=== PATIENT | female | born 1975 | race Caucasian/White ===

== ENCOUNTER 2023-10-27 09:24 | Emergency (ER) | payer OTHER, SELFPAY ==
[2023-10-27 09:33] VITALS: BP 122/78; PULSE 90; RESP 15; TEMP 37.2; O2SAT 100
--- NOTE | 2023-10-27 09:53 | DI.CT.S_ITS ---
PROCEDURE: CT HEAD/BRAIN WO CON INDICATIONS: fall, bloody drainage from left ear TECHNIQUE: Noncontrast 4.5 mm thick angled axial sections acquired from the foramen magnum to the vertex, with coronal and sagittal reformats. For radiation dose reduction, the following was used: automated exposure control, adjustment of mA and/or kV according to patient size. COMPARISON: None. FINDINGS: Image quality: Diagnostic. CSF spaces: Basal cisterns are patent. No extra-axial fluid collections. Ventricles are normal in size and shape. Brain: No midline shift. No intracranial masses or hemorrhage. Quinones-white matter interface is normal. Skull and face: Calvarium and visualized facial bones are intact, without suspicious lesions. Sinuses: Partial opacification of the left mastoid air cells. Paranasal sinuses are clear. IMPRESSION: No acute intracranial pathology. Partial opacification of the left mastoid air cells. Dictated by: Teo Murray M.D. on 10/27/2023 at 10:23 Approved by: Teo Murray M.D. on 10/27/2023 at 10:25
--- NOTE | 2023-10-27 09:57 | DI.CT.S_ITS ---
PROCEDURE: CT FACIAL BONES WO CON INDICATIONS: fall , bloody drainage from left ear TECHNIQUE: Noncontrast 2.5 mm thick axial images acquired from the mandible through the frontal sinuses, with coronal and sagittal reformatting. For radiation dose reduction, the following was used: automated exposure control, adjustment of mA and/or kV according to patient size. COMPARISON: None. FINDINGS: Image quality: Excellent. Bones and teeth: Orbital whitley are intact. Sinus whitley show no fracture or deformity. Nasal bones and septum are intact. Visualized portions of the mandible demonstrate no fractures or subluxation. Zygomatic arches are intact. Pterygoid plates are intact. Visualized portions of the skull base and auditory canals are intact. Sinuses: Mild mucosal thickening of left maxillary sinus with hyperostosis of the wall, consistent with chronic sinusitis. Left maxillary sinus mucous retention cyst. Mild mucosal thickening of the ethmoid air cells. Partial opacification of the left mastoid air cells. Small fluid within the middle ear. Fluid filling the external auditory canal. Soft tissues: No edema, masses, or fluid collections. No enlarged lymph nodes. No soft tissue lacerations or debris. Vascular: Visualized vascular structures appear normal in the absence of contrast. Bony vascular foramina and canals are intact. IMPRESSION: Partial opacification of left mastoid air cells. Small fluid within the left middle ear and opacification of the left external auditory canal. No definite fracture is identified. Dictated by: Teo Murray M.D. on 10/27/2023 at 10:25 Approved by: Teo Murray M.D. on 10/27/2023 at 10:28
--- NOTE | 2023-10-27 11:17 | ED.EAR ---
HPI - Ear Problem General Chief complaint: Ear Stated complaint: Blood & Discharge from L Ear Time Seen by Provider: 10/27/23 11:17 Source: patient Mode of arrival: Family Vehicle Related Data Home Medications Medication Instructions Recorded Confirmed sertraline 25 mg tablet 25 mg PO DAILY 10/27/23 10/27/23 Allergies Allergy/AdvReac Type Severity Reaction Status Date / Time No Known Drug Allergies Allergy Verified 10/27/23 08:57 Patient History Social History Smoking Status: Never smoker Smoking Status: Never smoker alcohol intake frequency: 0-2 drinks per day Substance Use Type: does not use Exam Narrative Exam Narrative: GENERAL: Well-developed patient, in mild distress. HEAD: Atraumatic. Normocephalic. EYES: Pupils equal round and reactive. Extraocular motions intact. No scleral icterus. No injection or drainage. ENT: Nose without bleeding, purulent drainage. Throat without erythema, tonsillar hypertrophy or exudate. Airway patent. NECK: Trachea midline. Non tender CARDIOVASCULAR: Regular rate and rhythm without murmurs, gallops, or rubs. RESPIRATORY: Clear to auscultation. Breath sounds equal bilaterally. No wheezes, rales, or rhonchi. GASTROINTESTINAL: Abdomen soft, non-tender, nondistended. EXTREMITIES: No edema or joint tenderness. BACK: Nontender without deformity or crepitance. No flank tenderness. NEURO: AOx3. SKIN: No rash or erythema of visible areas Initial Vital Signs Initial Vital Signs: Vital Signs Temperature 98.9 F 10/27/23 09:33 Pulse Rate 90 10/27/23 09:33 Respiratory Rate 15 10/27/23 09:33 Blood Pressure 122/78 10/27/23 09:33 Pulse Oximetry 100 10/27/23 09:33 Oxygen Delivery Method Room Air 10/27/23 09:33 Course Orders Ordered: ED Orders 10/27/23 09:53 CT head/brain wo con Stat 10/27/23 09:57 CT facial bones wo con Stat Discontinued Medications Ketorolac Tromethamine (Ketorolac 30 Mg/Ml Vial) 30 mg IM NOW ONE Stop: 10/27/23 11:14 Vital Signs Vital signs: Vital Signs - 8 hr 10/27/23 09:33 Temperature 98.9 F Pulse Rate 90 Respiratory Rate 15 Blood Pressure 122/78 Pulse Oximetry 100 Oxygen Delivery Method Room Air Discharge Plan Departure Prescriptions: No Action sertraline 25 mg tablet 25 mg PO DAILY Referrals: Miscellaneous,Doctor, MD [Primary Care Provider] -
[2023-10-27 11:19] VITALS: O2SAT 96
[2023-10-27 11:20] VITALS: BP 120/64; PULSE 93; O2SAT 99
[2023-10-27 11:30] VITALS: BP 108/61; PULSE 92; O2SAT 100
[2023-10-27] MEDS: SODIUM CHLORIDE 0.9% 1,000 ML 1000 ML IV (11:56)
[2023-10-27] MEDS: KETOROLAC 30 MG/ML VIAL 15 MG IV (11:57)
[2023-10-27 12:00] VITALS: BP 103/59; PULSE 92; O2SAT 100
--- NOTE | 2023-10-27 12:05 | ED_ITS ---
HPI - Ear Problem General Chief complaint: Ear Stated complaint: Blood & Discharge from L Ear Time Seen by Provider: 10/27/23 11:17 Source: patient Mode of arrival: Family Vehicle Limitations: no limitations History of Present Illness HPI Narrative: This is a 48-year-old female on sertraline as her only medication. Patient presents with complaint of left ear pain starting Wednesday, patient notes pain was increasing she then started having serosanguineous drainage from the ear possibly a little bit of purulent drainage had some improvement of pain and then it started to increase again. She feels like she has had some swelling of the ear and face and neck, she has discomfort in that area. She denies any fevers, chills or rigors. She has not had any trouble with swallowing, no changes to speech. No decreased hearing. She states moving her head does make that area hurt more. She does not have any difficulty with movement of her neck itself. She describes a decreased appetite but denies nausea or vomiting. No other GI symptoms reported. Patient has not appreciate any rash or redness. She states sertraline as her only daily medication, she has had prior surgery on her finger. No known drug allergies. No regular tobacco, no recreational drugs, no IV drugs. No regular alcohol. Patient does note that she had a while hike several days ago. She states she did not hit her head, she does not recall any trauma or injury to the neck ear or face. She states she does have some scratches and abrasions on her torso. Related Data Home Medications Medication Instructions Recorded Confirmed sertraline 25 mg tablet 25 mg PO DAILY 10/27/23 10/27/23 Previous Rx's Medication Instructions Recorded amoxicillin 875 mg-potassium 1 tab PO BID #20 tabs 10/27/23 clavulanate 125 mg tablet ciprofloxacin 0.3 %-dexamethasone 4 drp EAR-LEFT BID 10 days #7.5 mL 10/27/23 0.1 % ear drops,suspension meloxicam 7.5 mg tablet 7.5 mg PO BID PRN pain #10 tabs 10/27/23 Allergies Allergy/AdvReac Type Severity Reaction Status Date / Time No Known Drug Allergies Allergy Verified 10/27/23 08:57 Review of Systems Review of Systems ROS Unobtainable: All systems reviewed & are unremarkable except as noted in HPI and below Patient History Social History Smoking Status: Never smoker Smoking Status: Never smoker alcohol intake frequency: 0-2 drinks per day Substance Use Type: does not use Exam Narrative Exam Narrative: GEN: well nourished, well appearing female, alert and oriented x [default value], patient appears to be in mild distress. HEENT: Atraumatic, pupils are equal round reactive to light, extraocular movements are intact, nares are clear, right TM is intact with no fluid or erythema, difficult to visualize left TM there is some serosanguineous drainage in the canal of the canal itself that is visualized does not have any swelling, patient is nontender with movement of the pinna or when I place the otoscope within the canal. She does not have any obvious swelling of the ear, face or neck. Some mild submandibular lymphadenopathy. There is no conjunctival pallor. Throat is clear without any exudates, erythema, tonsillar enlargement or uvular deviation, normal speech. No difficulty with secretions or swallowing. Nontender over the mastoid. HEART: Regular rate and rhythm without murmur, clicks, rubs. No carotid bruits, pulses are equal in upper and lower extremities LUNGS:Lungs clear to auscultation, no wheezes, rales, crackles, chest moves symmetrically ABD:bowel sounds normal, soft, non-tender, no guarding, rebound, rigidity, no masses noted, no hepatosplenomegaly :No CVA tenderness, [male/female exam] MSCL: Non-tender, no muscle atrophy, muscles strength 5/5 upper and lower extremities, full range of motion, normal gait NEURO:CN 2-12 intact, sensation normal, reflexes 2/4 upper and lower extremities. finger nose finger test normal, heel cordova test normal, romberg normal Initial Vital Signs Initial Vital Signs: Vital Signs Temperature 98.9 F 10/27/23 09:33 Pulse Rate 90 10/27/23 09:33 Respiratory Rate 15 10/27/23 09:33 Blood Pressure 122/78 10/27/23 09:33 Pulse Oximetry 100 10/27/23 09:33 Oxygen Delivery Method Room Air 10/27/23 09:33 Course Orders Ordered: ED Orders 10/27/23 09:53 CT head/brain wo con Stat 10/27/23 09:57 CT facial bones wo con Stat Discontinued Medications Amoxicillin/Clavulanate Potassium (Amoxicillin/Clav 875/125 Mg) 1 tab PO NOW ONE Stop: 10/27/23 12:20 Last Admin: 10/27/23 12:27 Dose: 1 tab Documented By: MOSHE Sodium Chloride (Normal Saline 0.9%) 1,000 mls @ 1,000 mls/hr IV BOLUS ONE Stop: 10/27/23 12:53 Last Infusion: 10/27/23 12:44 Dose: Infused Documented By: Admin: 10/27/23 11:56 Dose: 1,000 mls/hr Documented By: MOSHE Ketorolac Tromethamine (Ketorolac 30 Mg/Ml Vial) 30 mg IM NOW ONE Stop: 10/27/23 11:14 Last Admin: 10/27/23 11:56 Dose: Not Given Documented By: MOSHE Ketorolac Tromethamine (Ketorolac 30 Mg/Ml Vial) 15 mg IV NOW ONE Stop: 10/27/23 11:56 Last Admin: 10/27/23 11:57 Dose: 15 mg Documented By: MOSHE Vital Signs Vital signs: Vital Signs - 8 hr 10/27/23 09:33 10/27/23 11:19 10/27/23 11:20 Temperature 98.9 F Pulse Rate 90 Respiratory Rate 15 Blood Pressure 122/78 120/64 Pulse Oximetry 100 96 Oxygen Delivery Method Room Air 10/27/23 11:20 10/27/23 11:30 10/27/23 11:30 Temperature Pulse Rate 93 H 92 H Respiratory Rate Blood Pressure 108/61 Pulse Oximetry 99 100 Oxygen Delivery Method 10/27/23 12:00 10/27/23 12:00 10/27/23 12:44 Temperature Pulse Rate 92 H 86 Respiratory Rate 16 Blood Pressure 103/59 L 116/62 Pulse Oximetry 100 100 Oxygen Delivery Method Room Air Medical Decision Making Imaging Data CT scan - head: Radiologist's Impression: Close Face CT (Signed) Teo Murray - 10/27/[address] (Signed) Teo Murray - 10/27/23 Launch?[address] [address] [address] Scan Report Signed Patient: Gosia Stockton MR#: [id number] : 1975 Acct:[id number] Age/Sex: 48 / F Date of Service: 10/27/23 Loc: ED Accession Number: [id number] Procedure: CT head/brain wo con Ordering Provider: Peter Blancas MD PROCEDURE: CT HEAD/BRAIN WO CON INDICATIONS: fall, bloody drainage from left ear TECHNIQUE: Noncontrast 4.5 mm thick angled axial sections acquired from the foramen magnum to the vertex, with coronal and sagittal reformats. For radiation dose reduction, the following was used: automated exposure control, adjustment of mA and/or kV according to patient size. COMPARISON: None. FINDINGS: Image quality: Diagnostic. CSF spaces: Basal cisterns are patent. No extra-axial fluid collections. Ventricles are normal in size and shape. Brain: No midline shift. No intracranial masses or hemorrhage. Quinones-white matter interface is normal. Skull and face: Calvarium and visualized facial bones are intact, without suspicious lesions. Sinuses: Partial opacification of the left mastoid air cells. Paranasal sinuses are clear. IMPRESSION: No acute intracranial pathology. Partial opacification of the left mastoid air cells. Dictated by: Teo Murray M.D. on 10/27/2023 at 10:23 Approved by: Teo Murray M.D. on 10/27/2023 at 10:[address]: Radiologist's Impression: [place] [address] CT Scan Report Signed Patient: Gosia Stockton MR#: [id number] : 1975 Acct:[id number] Age/Sex: 48 / F Date of Service: 10/27/23 Loc: ED Accession Number: [id number] Procedure: CT facial bones wo con Ordering Provider: Peter Blancas MD PROCEDURE: CT FACIAL BONES WO CON INDICATIONS: fall , bloody drainage from left ear TECHNIQUE: Noncontrast 2.5 mm thick axial images acquired from the mandible through the frontal sinuses, with coronal and sagittal reformatting. For radiation dose reduction, the following was used: automated exposure control, adjustment of mA and/or kV according to patient size. COMPARISON: None. FINDINGS: Image quality: Excellent. Bones and teeth: Orbital whitley are intact. Sinus whitley show no fracture or deformity. Nasal bones and septum are intact. Visualized portions of the mandible demonstrate no fractures or subluxation. Zygomatic arches are intact. Pterygoid plates are intact. Visualized portions of the skull base and auditory canals are intact. Sinuses: Mild mucosal thickening of left maxillary sinus with hyperostosis of the wall, consistent with chronic sinusitis. Left maxillary sinus mucous retention cyst. Mild mucosal thickening of the ethmoid air cells. Partial opacification of the left mastoid air cells. Small fluid within the middle ear. Fluid filling the external auditory canal. Soft tissues: No edema, masses, or fluid collections. No enlarged lymph nodes. No soft tissue lacerations or debris. Vascular: Visualized vascular structures appear normal in the absence of contrast. Bony vascular foramina and canals are intact. IMPRESSION: Partial opacification of left mastoid air cells. Small fluid within the left middle ear and opacification of the left external auditory canal. No definite fracture is identified. Dictated by: Teo Murray M.D. on 10/27/2023 at 10:25 Approved by: Teo Murray M.D. on 10/27/2023 at 10:28 [facility] Narrative Medical decision making narrative: 48-year-old female presents with complaint of left ear discomfort, drainage. Patient has what appears to be more serosanguineous them purulent drainage from the left ear. Unable to fully visualize the TM but suspect she has had rupture. The canal itself is nontender she has no external swelling or other skin changes. Patient did have a fall but denies striking her head, denies any trauma or injury to that area at that time. Patient appears to have an otitis media with likely ruptured TM. Patient was placed on oral antibiotics as well as drops for her ear. Patient had initially been triaged and physician present at that time had ordered CT head and facial bones based on reported history of hitting her head but patient states she did not. Imaging does show no basilar skull fracture, partial opacification of left mastoid air cells, facial bone CT shows mild mucosal thickening left maxillary sinus and changes consistent with chronic sinusitis, left maxillary sinus mucosal retention cyst. Thickening of the ethmoid air cells partial opacities in the left mastoid air cells and small fluid with an ear filling the external auditory canal. Patient is nontender over the sinuses or the mastoid. Discharge Plan Departure Patient Disposition: Home Clinical Impression: Otitis media with spontaneous rupture of eardrum, Sinusitis Instructions: Ruptured Eardrum Activity Restrictions/Additional Instructions: Follow up with ENT for recheck as I suspect you ruptured your ear drum, call to set up an appointment. Contact information is included below. You can use a cotton ball in the outer portion of your ear to get any drainage, do not use any Q-tips. Do not submerge your head or ear underneath the water, you do not want to go down into the canal. You appear to have an infection of your inner ear that caused your tympanic membrane rupture, on your imaging does note that there are some chronic sinusitis changes. Can take meloxicam 1 tablet every 12 hours as needed. Do not take this medication with ibuprofen, other NSAIDs to leave or naproxen. You can take Tylenol up to a 1000 mg every 6 hours as needed with this medication. Take antibiotics until completed, take 1 tablet every 12 hours times 10 days. You can use Cipro ear drops, 4 drops to the left ear twice daily times 10 days Prescription sent to [facility] in [place] Please return for fevers, increasing pain, new or increasing swelling, redness or skin changes, new changes to voice or difficulty with swallowing, any nausea or vomiting, new or worsening headaches, neck pain or any other new or concerning changes Prescriptions: New amoxicillin-pot clavulanate 875-125 mg tablet 1 tab PO BID Qty: 20 0RF ciprofloxacin-dexamethasone 0.3-0.1 % drops,suspension 4 drp EAR-LEFT BID 10 Days Qty: 7.5 0RF meloxicam 7.5 mg tablet 7.5 mg PO BID PRN (Reason: pain) Qty: 10 0RF No Action sertraline 25 mg tablet 25 mg PO DAILY Referrals: Raheem Johnson MD [Physician] - Miscellaneous,DoctorMD [Primary Care Provider] - Stand Alone Forms: Patient Portal/API, Work Release Note
[2023-10-27] MEDS: AMOXICILLIN/CLAV 875/125 MG 1 TAB PO (12:27)
[2023-10-27 12:44] VITALS: BP 116/62; PULSE 86; RESP 16; O2SAT 100
== END 2023-10-27 12:45 | disposition home or self-care (01) ==
PROVIDERS: Emergency Provider Emergency Medicine
DX: H66.92 Otitis media, unspecified, left ear (principal); H72.92 Unspecified perforation of tympanic membrane, left ear; J32.9 Chronic sinusitis, unspecified
CPT/HCPCS: 36415; 70450; 70486; 96361; 96374; 99284; J1885

== ENCOUNTER 2023-10-29 16:42 | Emergency (ER) | payer OTHER, SELFPAY ==
[2023-10-29 17:05] VITALS: BP 117/83; PULSE 75; RESP 16; TEMP 36.8; O2SAT 99; BMI 22.8
--- NOTE | 2023-10-29 17:40 | ED.RECABL ---
HPI - Recheck/Abnormal Lab/Rx <Tika Nuno PA-C - Last Filed: 11/01/23 14:42> General Chief Complaint: Recheck/Abnormal Lab/Rx Stated Complaint: HEAD pain/meds not working Time Seen by Provider: 10/29/23 17:39 Source: patient Mode of arrival: Ambulatory History of Present Illness HPI narrative: This is a 48-year-old woman recently seen in the ER for otitis media with ruptured eardrum who is on Augmentin and ciprofloxacin dexamethasone drops for ear discomfort who presents with concern for an episode of dizziness immediately after using the ear drops. Patient states that she had very uncomfortable episode of dizziness yesterday with the associated nausea when she attempted to use the ear drops into her ear, she has not used them since because of this. She says after using the drop she did have quite a bit of drainage from her ear of yellowish white material. She states that her other symptoms have improved somewhat although she has not completely resolved her symptoms. She is here today with concern for wanting something to help with dizziness and questioning whether she should continue to take the topical ear drops. She has no other new complaints or concerns. Related Data Home Medications Medication Instructions Recorded Confirmed sertraline 25 mg tablet 25 mg PO DAILY 10/27/23 10/27/23 Previous Rx's Medication Instructions Recorded amoxicillin 875 mg-potassium 1 tab PO BID #20 tabs 10/27/23 clavulanate 125 mg tablet ciprofloxacin 0.3 %-dexamethasone 4 drp EAR-LEFT BID 10 days #7.5 mL 10/27/23 0.1 % ear drops,suspension meloxicam 7.5 mg tablet 7.5 mg PO BID PRN pain #10 tabs 10/27/23 meclizine 25 mg tablet 25 mg PO QID 10 days #40 tabs 10/29/23 Allergies Allergy/AdvReac Type Severity Reaction Status Date / Time No Known Drug Allergies Allergy Verified 11/03/23 08:16 Review of Systems <Tika Nuno PA-C - Last Filed: 11/01/23 14:42> Review of Systems Narrative: See HPI Patient History <Tika Nuno PA-C - Last Filed: 11/01/23 14:42> Social History Smoking Status: Never smoker Smoking Status: Never smoker alcohol intake frequency: 0-2 drinks per day Substance Use Type: does not use Exam <Tika Nuno PA-C - Last Filed: 11/01/23 14:42> Narrative Exam Narrative: GENERAL: [48] year old patient appears stated age. Well-developed patient, in mild distress. HEAD: Atraumatic. Normocephalic. EYES: Pupils equal round and reactive. Extraocular motions intact. No scleral icterus. No injection or drainage. ENT: Nose without bleeding, purulent drainage. Throat without erythema, tonsillar hypertrophy or exudate. The left ear canal is slightly inflamed/swollen, the TM does appear to be ruptured, there is no significant erythema of the surrounding area, there is no tenderness with manipulation of the pinna or tragus, there is no swelling erythema or heat of the mastoid bone. There is a small amount of yellowish-white drainage dried in the ear canal on the left. Airway patent. NECK: Trachea midline. Non tender CARDIOVASCULAR: Regular rate and rhythm without murmurs, gallops, or rubs. RESPIRATORY: Clear to auscultation. Breath sounds equal bilaterally. No wheezes, rales, or rhonchi. EXTREMITIES: No edema or joint tenderness. NEURO: AOx3. SKIN: No rash or erythema of visible areas Initial Vital Signs Initial Vital Signs: Vital Signs Temperature 98.3 F 10/29/23 17:05 Pulse Rate 75 10/29/23 17:05 Respiratory Rate 16 10/29/23 17:05 Blood Pressure 117/83 10/29/23 17:05 Pulse Oximetry 99 10/29/23 17:05 Oxygen Delivery Method Room Air 10/29/23 17:05 <Leah Patterson MD - Last Filed: 11/05/23 08:27> Initial Vital Signs Initial Vital Signs: Vital Signs Temperature 98.3 F 10/29/23 17:05 Pulse Rate 75 10/29/23 17:05 Respiratory Rate 16 10/29/23 17:05 Blood Pressure 117/83 10/29/23 17:05 Pulse Oximetry 99 10/29/23 17:05 Oxygen Delivery Method Room Air 10/29/23 17:05 Course <Tika Nuno PA-C - Last Filed: 11/01/23 14:42> Vital Signs Vital signs: Vital Signs - 8 hr 06/07/24 17:05 Temperature 98.3 F Pulse Rate 75 Respiratory Rate 16 Blood Pressure 117/83 Pulse Oximetry 99 Oxygen Delivery Method Room Air <Leah Patterson MD - Last Filed: 11/05/23 08:27> Vital Signs Vital signs: Vital Signs - 8 hr 10/29/23 17:05 Temperature 98.3 F Pulse Rate 75 Respiratory Rate 16 Blood Pressure 117/83 Pulse Oximetry 99 Oxygen Delivery Method Room Air MDM - Recheck/Abnormal Lab/Rx <Tika Nuno PA-C - Last Filed: 11/01/23 14:42> Differential Diagnosis Differential diagnosis: Likely encounter for wound recheck and other (Medical question, medication side effect, vertigo) Medical Records Attestation: I reviewed the patient's medical records. Medical records narrative: Due to scheduled electronic system downtime unable to review patient's EMR MDM Narrative Medical decision making narrative: This is a well-appearing 48-year-old woman presenting with concern for episode of dizziness with nausea after using her topical ear drops in her left ear last night after diagnosis of otitis media with rupture. She has been taking her oral antibiotics and her symptoms have generally improved. We discussed options today and prescription for meclizine as well as Zofran prescribed. Given that the patient's symptoms occurred immediately after using the ear drops I think that this is the likely etiology of them, I have less suspicion for a other acute process. Exam is consistent with a recently ruptured eardrum possibly with otitis externa, there is no evidence of mastoiditis. Patient is advised regarding return precautions, follow-up plan discussed, all questions answered. Discharge Plan Departure Patient Disposition: Home Clinical Impression: Otitis media with spontaneous rupture of eardrum, Vertigo Activity Restrictions/Additional Instructions: *You have been diagnosed with [otitis media otitis externa, dizziness] *What to do: *Please continue to take your regular medications as directed. [2 ] New medication prescriptions sent to your pharmacy: [Ondansetron and meclizine] [ ] New medication written as a paper prescription [ ] No new medications given *Please follow up with your primary care provider in 2-3 days, call for an appointment. Let them know you were seen in the Emergency Department and that we ask that you be seen in follow up. We will electronically transmit a record of today's note if your PCP is in our system. You came in today with concern for some dizziness and nausea with using the ear drops you were prescribed recently for your ear infections. I recommend you try putting the drops in without lying completely on your side, it is okay to put them in sitting upright or only leaning slightly to the side and then kind of move her head position to try to help the drops move around inside the ear canal. Also try taking the meclizine medication 30-45 minutes prior to using the ear drops and possibly also taking these nausea medication also about 15-20 minutes before using the ear drops and see if this helps. If you have new or worsening symptoms or feel you are not improving please make sure you seek immediate re-evaluation. I hope you can get into see ENT soon but please come back to the emergency department if things are not improving or worsening. *If you do not have a primary care provider please contact the [facility] Resource line at [phone]. They will ask some questions about your medical history and help get you set up with a doctor in the community. *Return to Emergency Department if you should have any new, worsening or concerning symptoms, such as [fever greater than 101 F, shaking chills, worsening pain, persistent vomiting or other bothersome symptoms] Prescriptions: New meclizine 25 mg tablet 25 mg PO QID 10 Days Qty: 40 0RF No Action sertraline 25 mg tablet 25 mg PO DAILY amoxicillin-pot clavulanate 875-125 mg tablet 1 tab PO BID Qty: 20 0RF ciprofloxacin-dexamethasone 0.3-0.1 % drops,suspension 4 drp EAR-LEFT BID 10 Days Qty: 7.5 0RF meloxicam 7.5 mg tablet 7.5 mg PO BID PRN (Reason: pain) Qty: 10 0RF Referrals: Miscellaneous,Doctor, [Primary Care Provider] - Stand Alone Forms: Patient Portal/API ED Sign-out <Leah Patterson MD - Last Filed: 11/05/23 08:27> Cosign ED Attending Cosjefferyature Attestation: I did not see this patient. I was available all times for consultation.
[2023-10-29 19:57] VITALS: BP 110/72; PULSE 72; RESP 16; O2SAT 100
== END 2023-10-29 19:58 | disposition home or self-care (01) ==
PROVIDERS: Emergency Provider Student in an Organized Health Care Education/Training Program
DX: H66.92 Otitis media, unspecified, left ear (principal); R42 Dizziness and giddiness; H72.92 Unspecified perforation of tympanic membrane, left ear
CPT/HCPCS: 99281; 99283

== ENCOUNTER 2023-11-03 08:03 | Emergency (ER) | payer OTHER, SELFPAY ==
[2023-11-03 08:13] VITALS: BP 118/72; PULSE 66; RESP 16; TEMP 37; O2SAT 98; BMI 22.1
--- NOTE | 2023-11-03 08:18 | ED_ITS ---
HPI - Ear Problem General Chief complaint: Ear Stated complaint: L ear pain/drainage t-7 Time Seen by Provider: 11/03/23 08:18 Source: patient Mode of arrival: Ambulatory History of Present Illness HPI Narrative: Patient is a 48-year-old female who presents today with ongoing left ear drainage. She initially presented on October 26 with significant drainage. Found to have a ruptured tympanic membrane head CT was ordered there are reports of falling and hitting her head a few days prior. She was placed on Augmentin and Ciprodex drops. She has taken Augmentin now for 7 days. She had a repeat visit on October 28 for an episode of dizziness when she attempted to put ear drops in. She has been taking Tylenol 1000 mg every 6 hours combined with Motrin 400 mg every 6 hours. She continued to have significant drainage from the left ear. She has tenderness post or regularly. No fevers chills.. She tried to get into ENT but they are unavailable until January. Related Data Home Medications Medication Instructions Recorded Confirmed sertraline 25 mg tablet 25 mg PO DAILY 10/27/23 10/27/23 Previous Rx's Medication Instructions Recorded amoxicillin 875 mg-potassium 1 tab PO BID #20 tabs 10/27/23 clavulanate 125 mg tablet ciprofloxacin 0.3 %-dexamethasone 4 drp EAR-LEFT BID 10 days #7.5 mL 10/27/23 0.1 % ear drops,suspension meloxicam 7.5 mg tablet 7.5 mg PO BID PRN pain #10 tabs 10/27/23 meclizine 25 mg tablet 25 mg PO QID 10 days #40 tabs 10/29/23 ondansetron 4 mg disintegrating 4 mg PO Q8H PRN nausea and 10/29/23 tablet vomiting 7 days #21 tabs Allergies Allergy/AdvReac Type Severity Reaction Status Date / Time No Known Drug Allergies Allergy Verified 11/03/23 08:16 Patient History Social History Smoking Status: Never smoker Smoking Status: Never smoker alcohol intake frequency: 0-2 drinks per day Substance Use Type: does not use Exam Initial Vital Signs Initial Vital Signs: Vital Signs Temperature 98.6 F 11/03/23 08:13 Pulse Rate 66 11/03/23 08:13 Respiratory Rate 16 11/03/23 08:13 Blood Pressure 118/72 06/12/24 08:13 Pulse Oximetry 98 11/03/23 08:13 Oxygen Delivery Method Room Air 11/03/23 08:13 GENERAL: Well-appearing, well-nourished and in no acute distress. LEFT EAR: Significant call your yellowish drainage tympanic membrane not visualized no blood mildly tender postauricular no significant lymphadenopathy The ear itself is nonerythematous mild swelling. CARDIOVASCULAR: peripheral pulses in tact, cap refill <2 sec RESPIRATORY: No respiratory distress, speaks in full sentences without difficulty EXTREMITIES: Normal range of motion, no clubbing or edema. Neurovascularly intact NEUROLOGICAL: Cranial nerves II through XII grossly intact. Normal gait and speech. SKIN: Warm, dry, no petechiae, no rashes or lesions. Course Orders Ordered: ED Orders 11/03/23 08:53 Ear culture Stat 11/03/23 09:00 CT mastoid temporal Stat Discontinued Medications Ketorolac Tromethamine (Ketorolac 30 Mg/Ml Vial) 30 mg IM NOW ONE Stop: 11/03/23 08:36 Last Admin: 11/03/23 08:47 Dose: 30 mg Documented By: MOSHE Vital Signs Vital signs: Vital Signs - 8 hr 11/03/23 08:13 11/03/23 09:44 11/03/23 10:29 Temperature 98.6 F Pulse Rate 66 69 76 Respiratory Rate 16 12 12 Blood Pressure 118/72 103/64 Pulse Oximetry 98 98 97 Oxygen Delivery Method Room Air Room Air Room Air Medical Decision Making Imaging Data CT mastoids: Radiologist's Impression: PROCEDURE: CT MASTOID TEMPORAL INDICATIONS: left ear drainage sever pain COMPARISON: [facility], CT, CT FACIAL BONES WO CON, 10/27/2023, 10:05. [facility], CT, CT HEAD/BRAIN WO CON, 10/27/2023, 10:05. TECHNIQUE: Noncontrast 0.6 mm thick axial sections acquired through each temporal bone separately. Coronal images are reformatted. FINDINGS: Image quality: Excellent. RIGHT: External auditory canal: Canal has a normal appearance. Middle/inner ear: The middle ear structures, including the ossicles and tympanic membrane, appear normal. There is minimal appearance of soft tissue density within the external canal. However, a more prominent focus is identified medial to the tympanic membrane. This was present on prior exam although appears more prominent. Mastoids: Mastoid air cells are clear. LEFT: External auditory canal: Canal demonstrates soft tissue edema, more prominent when compared to prior exam. Middle/and ear: There is complete opacification of the middle and inner ear, which demonstrates interval worsening. Fluid/soft tissue density completely surrounds the ossicles. No ossicular erosion. The middle ear structures, including the ossicles and tympanic membrane, appear normal. No abnormal fluid or soft tissue density. Mastoids: Mastoid air cells demonstrate marked opacification mildly worse compared to prior exam. MISCELLANEOUS: Visualized surrounding bones appear unremarkable. Visualized intracranial structures, including the cerebellopontine angle cisterns, appear normal. IMPRESSION: Interval worsening of opacification of the left mastoid air cells, soft tissue edema of the external canal as well as complete opacification within the middle and inner ear. Findings are most consistent with infection/inflammation such as mastoiditis and subsequent middle/inner ear infection. On current exam there is no defined osseous erosion as typically identified with malignant otitis media. Dictated by: Ludivina Paul M.D. on 11/03/2023 at 8:56 MDM Narrative Medical decision making narrative: Patient 48-year-old female presents today with ongoing left otitis externa. She does have significant kind of clear yellowish drainage. Culture is sent. CT has been reviewed concern for possible mastoiditis. She is afebrile appears uncomfortable but not septic. Vitals are stable. 09:45 Dr. Amaya on-call ENT states that patient will be seen in his office today there is an opening. Patient will follow-up with ENT today at appointment at 1:00 p.m.. She received a shot of Toradol here in the ED which helped some. Discharge Plan Departure Patient Disposition: Home Clinical Impression: Otitis media with spontaneous rupture of eardrum Instructions: DI for Otitis Externa Activity Restrictions/Additional Instructions: *You have been diagnosed with otitis externa *What to do: Dr. Amaya will see you today At 1:05pm check in [address] [place], [place] [id number] (behind [address]) *Continue to take medications as directed *Return to ER if you should have fever increasing pain loss of hearing [or] any new, worsening or concerning symptoms Prescriptions: No Action sertraline 25 mg tablet 25 mg PO DAILY amoxicillin-pot clavulanate 875-125 mg tablet 1 tab PO BID Qty: 20 0RF ciprofloxacin-dexamethasone 0.3-0.1 % drops,suspension 4 drp EAR-LEFT BID 10 Days Qty: 7.5 0RF meloxicam 7.5 mg tablet 7.5 mg PO BID PRN (Reason: pain) Qty: 10 0RF meclizine 25 mg tablet 25 mg PO QID 10 Days Qty: 40 0RF ondansetron 4 mg tablet,disintegrating 4 mg PO Q8H PRN (Reason: nausea and vomiting) 7 Days Qty: 21 0RF Referrals: Miscellaneous,Doctor, MD [Primary Care Provider] - Stand Alone Forms: Patient Portal/API
[2023-11-03] MEDS: KETOROLAC 30 MG/ML VIAL IM (08:47)
--- NOTE | 2023-11-03 09:00 | DI.CT.S_ITS ---
PROCEDURE: CT MASTOID TEMPORAL INDICATIONS: left ear drainage sever pain COMPARISON: [facility], CT, CT FACIAL BONES WO CON, 10/27/2023, 10:05. [facility], CT, CT HEAD/BRAIN WO CON, 10/27/2023, 10:05. TECHNIQUE: Noncontrast 0.6 mm thick axial sections acquired through each temporal bone separately. Coronal images are reformatted. FINDINGS: Image quality: Excellent. RIGHT: External auditory canal: Canal has a normal appearance. Middle/inner ear: The middle ear structures, including the ossicles and tympanic membrane, appear normal. There is minimal appearance of soft tissue density within the external canal. However, a more prominent focus is identified medial to the tympanic membrane. This was present on prior exam although appears more prominent. Mastoids: Mastoid air cells are clear. LEFT: External auditory canal: Canal demonstrates soft tissue edema, more prominent when compared to prior exam. Middle/and ear: There is complete opacification of the middle and inner ear, which demonstrates interval worsening. Fluid/soft tissue density completely surrounds the ossicles. No ossicular erosion. The middle ear structures, including the ossicles and tympanic membrane, appear normal. No abnormal fluid or soft tissue density. Mastoids: Mastoid air cells demonstrate marked opacification mildly worse compared to prior exam. MISCELLANEOUS: Visualized surrounding bones appear unremarkable. Visualized intracranial structures, including the cerebellopontine angle cisterns, appear normal. IMPRESSION: Interval worsening of opacification of the left mastoid air cells, soft tissue edema of the external canal as well as complete opacification within the middle and inner ear. Findings are most consistent with infection/inflammation such as mastoiditis and subsequent middle/inner ear infection. On current exam there is no defined osseous erosion as typically identified with malignant otitis media. Dictated by: Ludivina Paul M.D. on 11/03/2023 at 8:56 Approved by: Ludivina Paul M.D. on 11/03/2023 at 9:03
[2023-11-03 09:44] VITALS: PULSE 69; RESP 12; O2SAT 98
[2023-11-03 10:29] VITALS: BP 103/64; PULSE 76; RESP 12; O2SAT 97
== END 2023-11-03 10:31 | disposition home or self-care (01) ==
PROVIDERS: Emergency Provider Emergency Medicine
DX: H66.92 Otitis media, unspecified, left ear (principal); H72.92 Unspecified perforation of tympanic membrane, left ear
CPT/HCPCS: 70480; 87070; 87205; 96372; 99284; J1885